=== PATIENT | female | born 1995 | race Caucasian/White ===

== ENCOUNTER → 2017-06-16 | Outpatient (CLI) | payer SELFPAY | LOC: YCFC.O 08:44 | PROVIDERS: ATTEND Nurse Practitioner Family | DX: N89.8 Other specified noninflammatory disorders of vagina (principal) ==

== ENCOUNTER → 2017-06-21 | Outpatient (CLI) | payer SELFPAY ==
--- NOTE | 2017-06-21 16:40 | US ---
EXAM DESCRIPTION: Pelvis Transvaginal CLINICAL HISTORY: 22 years, Female, ABN UTERINE BLEEDING COMPARISON: None. FINDINGS: Transvaginal pelvic ultrasound. The uterus measures 9.9 x 4.4 x 5.8 cm. Small amount of free fluid in the pelvis is seen in the cul-de-sac. Ill-defined area in the anterior uterine body could be an isoechoic mural fibroid measuring 2.1 cm in greatest dimension. Prominent vessels in the outer myometrium. Endometrium measures 9.6 mm in maximal thickness. Small cysts in the upper cervix are consistent with nabothian cysts. Right ovary measures 3.9 x 3.2 x 3.6 in meters. cm. Left ovary measures 5.3 x 4.3 x 5.2 cm. cm. Cyst in the left ovary measures 4.4 x 5.3 x 4 cm. This has a thin wall with an anechoic interior and no malignant features. This could be followed up with physical exam to ensure stability or resolution. There is no adnexal mass or free fluid. IMPRESSION: Simple appearing cyst 5.2 cm in greatest dimension in the left ovary. See above. Electronically signed by: Tavo Sevilla MD 06/21/2017 4:39 PM CDT
== END ==
LOC: YCFC.O 09:12
PROVIDERS: ATTEND Nurse Practitioner Family
DX: N93.9 Abnormal uterine and vaginal bleeding, unspecified (principal); N89.8 Other specified noninflammatory disorders of vagina; N83.202 Unspecified ovarian cyst, left side

== ENCOUNTER 2020-03-31 03:31 | Emergency (ER) | payer SELFPAY ==
[2020-03-31] MEDS ORDERED: ONDANSETRON INJ 4 MG/2 ML VIAL IV ONE ×2 (03:39→04:51)
[2020-03-31] MEDS ORDERED: SODIUM CHLORIDE 0.9% 1000ML 1,000 ML IVS ONE ×2 (03:39→05:18)
--- NOTE | 2020-03-31 04:53 | ED.PDOC ---
History of Present Illness - General Chief Complaint: GI Problem Stated Complaint: N/V/D, chills, Time Seen by Provider: 03/31/20 04:47 Information Source: patient, RN notes reviewed, Vital Signs reviewed Additional Information: 25-year-old female, presents to the ER because of nausea and vomiting diffuse abdominal pain diarrhea, patient just finished a 10-day course of amoxicillin for an ear infection. Patient has no known sick contact patient also admits fever. paitent is curently in her menstrual period patient still has her appendix and has had previous BTL surgery patient denies dysuria patient has no recent travels and no bloody stools - History of Present Illness Abdominal Pain Onset Location: generalized abdomen Pain Radiation: no radiation Quality: cramping Improving Factors: nothing Worsening Factors: nothing Associated Symptoms: diarrhea, nausea/vomiting Review of Systems - Review of Systems Constitutional: States: fever EENTM: States: no symptoms reported Respiratory: States: no symptoms reported Cardiology: States: no symptoms reported Gastrointestinal/Abdominal: States: abdominal pain, diarrhea, nausea, vomiting Musculoskeletal: States: no symptoms reported Skin: States: no symptoms reported Neurological: States: no symptoms reported Endocrine: States: no symptoms reported Hematologic/Lymphatic: States: no symptoms reported Past Medical History (General) - Patient Medical History Hx Seizures: No Hx Stroke: No Hx Dementia: No Hx Asthma: No Hx of COPD: No Hx Cardiac Disorders: No Hx Congestive Heart Failure: No Hx Pacemaker: No Hx Hypertension: No Hx Thyroid Disease: No Hx Diabetes: Yes - GDM Hx Gastroesophageal Reflux: No Hx Renal Disease: No Hx Cancer: No Hx of HIV: No Hx Hepatitis C: No Hx MRSA: No Surgical History: other - Vaccination History Hx Tetanus, Diphtheria Vaccination: No Hx Influenza Vaccination: No Hx Pneumococcal Vaccination: No - Social History Hx Tobacco Use: No Hx Alcohol Use: No Hx Substance Use: No - Female History Hx Last Menstrual Period: 03/31/20 Patient : Yes Expected Date of Delivery:: 02/21/14 Family Medical History - Family History Maternal Grandparents Living Status: Age at (years of age): 47 Cause of : massive heart attack Hx Family Asthma: Yes - mother at young age Hx Family Hypertension: Yes Age of Onset (years of age): 36 Age of Onset (years of age): 67 Hx Cardiac Disease: Yes - grand father Age of Onset (years of age): 67 Hx Family Diabetes: Yes - mother Age of Onset (years of age): 31 Hx Family Cancer: Yes - grandmother Hx Family;Other: Cardiac,hypertension, diabetes, on both sides of family Physical Exam - Physical Exam General Appearance: No apparent distress, Ill Appearing, Well Developed Eyes, Ears, Nose, Throat Exam: normal ENT inspection, TMs normal, pharynx normal Neck: non-tender, full range of motion, supple, normal inspection Respiratory: chest non-tender, lungs clear, normal breath sounds, no respiratory distress, no accessory muscle use Cardiovascular/Chest: normal peripheral pulses, regular rate, rhythm, no edema, no gallop, no JVD, no murmur Peripheral Pulses: No deficit Gastrointestinal/Abdominal: normal bowel sounds, non tender, soft, no organomegaly, no pulsatile mass Back Exam: normal inspection, no CVA tenderness, no vertebral tenderness Extremity: normal range of motion, non-tender, normal inspection, no pedal edema, no calf tenderness Neurologic: business controller II-XII nml as tested, no motor/sensory deficits, alert, normal mood/affect, oriented x 3 Skin Exam: normal color Lymphatic: no adenopathy Progress - Progress Progress: 25 year-old female, presents to the ER because of nausea vomiting diffuse abdominal pain sensation of chills, and foul-smelling diarrhea, nonbloody this patient has been antibiotics for ear infection, patient denies any sick contacts or recent travels and no blood, patient was COVID-19 negative, patient was C. difficile negative, has some leukocytosis without the presence of right lower quadrant pain McBurney's sign obturator sign and psoas signs of any signs of appendicitis, patient will receive some fluids in the ER and will be discharged home with Pepcid Bentyl and Zofran, with instructions to return to the ER immediately for any severe nausea vomiting abdominal pain right lower quadrant pain back pain diarrhea bloody stools unwanted weight of decreased oral intake unable to hold any fluids down during the urine blood in the stool painful Urination or any other concern 03/31/20 05:19 Departure - Departure Clinical Impression: Diarrhea Qualifiers: Diarrhea type: unspecified type Qualified Code(s): R19.7 - Diarrhea, unspecified Vomiting Qualifiers: Vomiting type: unspecified Vomiting Intractability: non-intractable Nausea presence: with nausea Qualified Code(s): R11.2 - Nausea with vomiting, unspecified Abdominal pain Qualifiers: Abdominal location: generalized Qualified Code(s): R10.84 - Generalized abdominal pain Disposition: Discharge to Home or Self Care Condition: Fair Departure Forms: ED Discharge - Pt. Copy, Patient Portal Self Enrollment Diet: full liquid diet Referrals: Chalo Martinez MD [Primary Care Provider] - 1-2 Weeks Prescriptions: Dicyclomine HCl [Bentyl] 20 mg PO Q6HRS #30 tab Ondansetron Odt [Zofran ODT] 4 mg PO Q6HRS #20 tab Famotidine [Pepcid] 20 mg PO BID #30 tab Home Medications: Ambulatory Orders Dicyclomine HCl [Bentyl] 20 mg PO Q6HRS #30 tab 03/31/20 Famotidine [Pepcid] 20 mg PO BID #30 tab 03/31/20 Ondansetron Odt [Zofran ODT] 4 mg PO Q6HRS #20 tab 03/31/20 Additional Instructions: return to the ER immediately for any severe nausea vomiting abdominal pain right lower quadrant pain back pain diarrhea bloody stools unwanted weight of decreased oral intake unable to hold any fluids down during the urine blood in the stool painful Urination or any other concern
[2020-03-31] MEDS ORDERED: SODIUM CHLORIDE 0.9% 1000ML 1,000 ML ONE (05:19)
[2020-03-31 06:01] VITALS: BP 111/75; O2SAT 99
[2020-03-31 06:18] VITALS: TEMP 98
== END 2020-03-31 06:18 | disposition home or self-care (01) ==
LOC: ER 03:31
DX: R11.2 Nausea with vomiting, unspecified (principal); R19.7 Diarrhea, unspecified; Z20.822 Contact with and (suspected) exposure to COVID-19
CPT/HCPCS: 80053; 81001; 85025; 87045; 87046; 87177; 87209; 87324; 87449; 87502; 87635; J2405; J7030